=== PATIENT | female | born 1950 | race Caucasian/White ===

== ENCOUNTER 2019-06-07 10:32 | Outpatient (CLI) | payer MEDICARE, OTHER ==
--- NOTE | 2019-06-07 11:31 | MMO ---
Bilateral MAMMO Bilat Screen [facility]. CLINICAL HISTORY: Patient is 68 years old and is seen for screening. The patient has the following family history of breast cancer: mother, at age 40. The patient has no personal history of cancer. VIEWS: The views performed were: bilateral craniocaudal with tomosynthesis and bilateral mediolateral oblique with tomosynthesis. FILMS COMPARED: The present examination has been compared to a prior imaging study performed at [facility] on 10/07/2016. This study has been interpreted with the assistance of computer-aided detection. MAMMOGRAM FINDINGS: There are scattered fibroglandular densities. There are no suspicious masses, suspicious calcifications, or new areas of architectural distortion. IMPRESSION: THERE IS NO MAMMOGRAPHIC EVIDENCE OF MALIGNANCY. A ROUTINE FOLLOW-UP MAMMOGRAM IN 1 YEAR IS RECOMMENDED. THE RESULTS OF THIS EXAM WERE SENT TO THE PATIENT. ACR BI-RADS Category 1 - Negative MAMMOGRAPHY NOTE: 1. A negative mammogram report should not delay a biopsy if a dominant of clinically suspicious mass is present. 2. Approximately 10% to 15% of breast cancers are not detected by mammography. 3. Adenosis and dense breasts may obscure an underlying neoplasm. Reported by: PAVAN COFFMAN MD Electonically Signed: [id number]
== END 2019-06-07 10:33 | disposition home or self-care (01) ==
LOC: BICMAMMO 10:32
PROVIDERS: ATTEND Family Medicine
DX: Z12.31 Encounter for screening mammogram for malignant neoplasm of breast (principal); Z80.3 Family history of malignant neoplasm of breast
CPT/HCPCS: 77063; 77067

== ENCOUNTER 2019-08-09 13:00 | Outpatient (CLI) | payer MEDICARE, OTHER ==
--- NOTE | 2019-08-09 14:21 | BD ---
EXAM: Bone densitometry using DEXA HISTORY: 68 yo female. Screening for postmenopausal osteoporosis FINDINGS: L1--bone mineral density 1.026 g/sq cm; T score 0.3 ; Z score 2.1 L2--bone mineral density 1.119 g/sq cm; T score 0.8 ; Z score 2.8 L3--bone mineral density 1.146 g/sq cm; T score 0.6 ; Z score 2.7 L4--bone mineral density 1.244 g/sq cm; T score 1.7 ; Z score 3.8 Total L1-L4--bone mineral density 1.139 g/sq cm; T score 0.8 ; Z score 2.9 Left femoral neck--bone mineral density0.762; T score -0.8 ; Z score 0.9 Total proximal left femur--bone mineral density 1.091; T score 1.2 ; Z score 2.6 The 10 year fracture risk for a major osteoporotic fracture is 10% and for a hip fracture is 0.9%. IMPRESSION: Normal BMD
--- NOTE | 2019-08-09 14:57 | RAD ---
AP PELVIS: HISTORY: Bilateral hip pain. FINDINGS: No fracture, dislocation or bony destruction is seen. Minimal degenerative changes are seen in the hi p joints. POS: [facility]
--- NOTE | 2019-08-09 15:00 | RAD ---
LEFT HIP 2 VIEWS: Date: 08/09/19 HISTORY: Left hip pain. FINDINGS/IMPRESSION: Minimal degenerative changes are present. No fracture, dislocation, or bony destruction identified. POS: [facility]
--- NOTE | 2019-08-09 15:03 | RAD ---
RIGHT HIP TWO VIEWS: HISTORY: Pain in the right hip. FINDINGS: Minimal degenerative change is seen. No fracture, dislocation or bony destruction is identified. POS: [facility]
== END 2019-08-09 13:01 | disposition home or self-care (01) ==
LOC: BICRAD 13:00
PROVIDERS: ATTEND Internal Medicine Rheumatology
DX: M81.0 Age-related osteoporosis without current pathological fracture (principal); M25.551 Pain in right hip; M25.552 Pain in left hip; M16.0 Bilateral primary osteoarthritis of hip
CPT/HCPCS: 72170; 77080

== ENCOUNTER 2020-02-16 07:31 | Outpatient (CLI) | payer MEDICARE ==
--- NOTE | 2020-02-16 09:01 | MRI ---
MRI LUMBAR SPINE WITHOUT CONTRAST: INDICATION: Low back pain with radiculopathy. FINDINGS: Lumbar vertebrae maintain normal height. Degenerative disk changes are seen below L3. There is rath er pronounced degenerative disk and end plate changes with loss of disk space at L4-5 and L5-S1. Mil d loss of disk space at L3-4. Disk spaces above L3 are preserved. Findings at each level are descri bed. T12-L1: Minimal disk bulge. No central canal or foraminal stenosis. L1-2: Mild disk bulge. Mild facet hypertrophy. No central canal or foraminal stenosis. L2-3: Mild disk bulge. Moderate facet and ligamentous hypertrophy with posterior epidural fat. Wilmer y mild central canal stenosis. No foraminal stenosis. L3-4: There is a broad-based disk bulge with evidence of annular fissure and focal protrusion into t he foraminal zone on the left. Prominent facet and ligamentous hypertrophy with posterior epidural f at is present. These changes result in mild to moderate central canal stenosis. Mild left foraminal stenosis due to the asymmetric disk protrusion. L4-5: Loss of disk space with degenerative disk and end plate change. Mild diffuse disk bulge. Pro minent facet and ligamentous hypertrophy. Mild central canal stenosis. Bilateral foraminal narrowin g secondary to facet hypertrophy. L5-S1: A broad-based disk bulge/protrusion. Mild facet hypertrophy. No significant central canal s tenosis. Bilateral foraminal stenosis is present. IMPRESSION: There are degenerative disk changes at L3-4, L4-5, and L5-S1. See description at each level above. POS: [facility]
== END 2020-02-16 07:32 | disposition home or self-care (01) ==
LOC: TBSIIMAG 07:31
PROVIDERS: ATTEND Family Medicine
DX: M51.16 Intervertebral disc disorders with radiculopathy, lumbar region (principal); M51.37 Other intervertebral disc degeneration, lumbosacral region; M51.9 Unspecified thoracic, thoracolumbar and lumbosacral intervertebral disc disorder; M47.816 Spondylosis without myelopathy or radiculopathy, lumbar region; M47.817 Spondylosis without myelopathy or radiculopathy, lumbosacral region; M51.27 Other intervertebral disc displacement, lumbosacral region; M48.061 Spinal stenosis, lumbar region without neurogenic claudication; M48.07 Spinal stenosis, lumbosacral region
CPT/HCPCS: 72148

== ENCOUNTER 2023-04-01 12:02 | Outpatient (CLI) | payer MEDICARE | END 2023-04-01 12:03 | disposition home or self-care (01) | LOC: BICMAMMO 12:02 | PROVIDERS: ATTEND Family Medicine | DX: Z12.31 Encounter for screening mammogram for malignant neoplasm of breast (principal); Z80.3 Family history of malignant neoplasm of breast | CPT/HCPCS: 77063; 77067 ==

== ENCOUNTER 2023-09-24 09:28 | Outpatient (CLI) | payer MEDICARE | END 2023-09-24 09:29 | disposition home or self-care (01) | LOC: BICMRI 09:28 | PROVIDERS: ATTEND Orthopaedic Surgery | DX: S83.242A Other tear of medial meniscus, current injury, left knee, initial encounter (principal); R60.0 Localized edema; M94.8X6 Other specified disorders of cartilage, lower leg ==

== ENCOUNTER 2024-08-25 13:24 | Outpatient (CLI) | payer MEDICARE | END 2024-08-25 13:25 | disposition home or self-care (01) | LOC: BICMAMMO 13:24 | PROVIDERS: ATTEND Family Medicine | DX: Z12.31 Encounter for screening mammogram for malignant neoplasm of breast (principal); Z80.3 Family history of malignant neoplasm of breast | CPT/HCPCS: 77063; 77067 ==

== ENCOUNTER 2025-09-05 14:35 | Outpatient (CLI) | payer MEDICARE | END 2025-09-05 14:36 | disposition home or self-care (01) | LOC: BICMAMMO 14:35 | PROVIDERS: ATTEND Family Medicine | DX: Z12.31 Encounter for screening mammogram for malignant neoplasm of breast (principal); M85.89 Other specified disorders of bone density and structure, multiple sites; Z80.3 Family history of malignant neoplasm of breast | CPT/HCPCS: 77063; 77067; 77080 ==